=== PATIENT | male | born 1955 | race Caucasian/White ===

== ENCOUNTER 2018-01-12 10:43 | Outpatient (CLI) | payer BC, OTHER | END 2018-01-12 10:44 | disposition home or self-care (01) | LOC: BICULT 10:43 | PROVIDERS: ATTEND Internal Medicine Nephrology | DX: N18.3 Chronic kidney disease, stage 3 (moderate) (principal); N13.30 Unspecified hydronephrosis | CPT/HCPCS: 76770 ==

== ENCOUNTER 2018-01-31 12:15 | Outpatient (CLI) | payer BC, OTHER | END 2018-01-31 12:16 | disposition home or self-care (01) | LOC: SCSCT 12:15 | PROVIDERS: ATTEND Urology | DX: N13.30 Unspecified hydronephrosis (principal); N28.1 Cyst of kidney, acquired | CPT/HCPCS: 74176 ==

== ENCOUNTER 2018-07-11 11:21 | Outpatient (CLI) | payer BC ==
[2018-07-11 12:24] LABS: #Eosinphils 0.1 thou/uL (0.0-0.7); #Lymphocytes 1.1 thou/uL (1.20-3.40); #Monocytes 0.4 thou/uL (0.11-0.59); #Neutrophils 3.7 thou/uL (1.40-6.50); %Basophils 0.5 % (0.0-1.0); %Eosinophils 2.2 % (0.0-10.0); %Lymphocytes 20.9 % (21.0-51.0); %Monocytes 7.3 % (0.0-10.0); %Neutrophils 69.1 % (42.0-75.0); Hemoglobin 12.2 g/dL (14.0-18.0); Mean Corpuscular HGB CONC 32.8 g/dL (32.0-36.0); Mean Corpuscular Hemoglobin 28.6 pg (27.0-31.0); Mean Corpuscular Volume 87.2 fL (78.0-98.0); Platelet Count 219 thou/uL (130-400); RBC Distribution Width 11.8 % (11.5-14.5); Red Blood Cell (RBC) Count 4.28 mill/uL (4.70-6.10); White Blood Cell (WBC) Count 5.4 thou/uL (4.8-10.8)
[2018-07-11 12:42] LABS: ALT (SGPT) 16 U/L (8-55); AST (SGOT) 24 U/L (5-34); Albumin 3.9 g/dL (3.4-4.8); Alkaline Phosphatase 93 U/L (40-150); Anion Gap 12 mmol/L (10-20); BUN (Urea Nitrogen) 16 mg/dL (8.4-25.7); Bilirubin, Total 0.4 mg/dL (0.2-1.2); Calc. Creatinine Clearance 0 mL/min (70-130); Calcium 9.1 mg/dL (7.8-10.44); Carbon Dioxide 26 mmol/L (23-31); Chloride 106 mmol/L (98-107); Estimated GFR-MDRD 66; Globulin 2.7 g/dL (2.4-3.5); Glucose 79 mg/dL (80-115); Potassium 4.7 mmol/L (3.5-5.1); Protein, Total 6.6 g/dL (5.8-8.1); Sodium 139 mmol/L (136-145)
--- NOTE | 2018-07-11 16:19 | EKG ---
Test Reason : Blood Pressure : / mmHG Vent. Rate : 072 BPM Atrial Rate : 072 BPM P-R Int : 184 ms QRS Dur : 068 ms QT Int : 384 ms P-R-T Axes : 036 012 012 degrees QTc Int : 420 ms Normal sinus rhythm Normal ECG When compared with ECG of 03-JAN-2013 16:21, No significant change was found Confirmed by DR. Isabelle MCNEIL ([id number]) on 07/11/2018 4:19:25 PM Referred By: ANGIE Confirmed By:DR. Isabelle MCNEIL
== END 2018-07-11 11:22 | disposition home or self-care (01) ==
LOC: LABBT 11:21
PROVIDERS: ATTEND Surgery
DX: Z01.818 Encounter for other preprocedural examination (principal)
CPT/HCPCS: 80053; 85025; 93005; 93010

== ENCOUNTER 2018-07-14 06:38 | Day surgery (SDC) | payer BC ==
[2018-07-11 11:39] VITALS: BMI 27.4
[2018-07-14] MEDS ORDERED: CEFAZOLIN 2 GM/50 ML BAG ONE (07:32)
[2018-07-14] MEDS ORDERED: Bupivacaine/Epinephrine 0.25% 30 ML VIAL ONE (08:30)
[2018-07-14] MEDS ORDERED: Fentanyl 100 MCG/2 ML VIAL ONE ×2 (08:56→10:18)
[2018-07-14] MEDS ORDERED: PROPOFOL 200 MG/20 ML VIAL ONE (10:39)
[2018-07-14] MEDS ORDERED: Lidocaine 1% PF 5 ML VIAL ONE (10:39)
[2018-07-14] MEDS ORDERED: PHENYLEPHRINE-NS 100 MCG/ML 10 ML SYRINGE ONE (10:39)
[2018-07-14] MEDS ORDERED: HYDROcodone/Acetaminophen 5/325 mg Tablet ONE (11:39)
--- NOTE | 2018-07-14 12:46 | OP ---
DATE OF PROCEDURE: 07/14/2018 PREOPERATIVE DIAGNOSIS: Right inguinal hernia. PROCEDURE PERFORMED: Right inguinal hernia repair with mesh. INDICATIONS: This is a 62-year-old male, who had a painful bulge in the right groin, found to have a hernia. FINDINGS: Right indirect inguinal hernia. DESCRIPTION OF PROCEDURE: After informed consent was obtained, the patient was taken to the operating room and given general endotracheal anesthesia, placed in the supine position. His groin area was prepped and draped in usual fashion. Local anesthesia was infiltrated subcutaneously and deep, and a transverse right inguinal incision was performed. Subcu divided sharply. The fascia of external oblique was incised in direction of its fibers through the external ring. The spermatic cord isolated with a [place] drain. Cremasteric fibers . Hernia sac was found. This was dissected down to the internal ring, and reduced. Reduction maintained with a PHS hernia system. The posterior layer was placed in the preperitoneal space, anterior was laid down and medially. It was sutured to the pubic tubercle with a 2-0 Prolene suture laterally. It was tucked under the external oblique fascia. A notch was cut out for the spermatic cord. Hemostasis assured. The cord placed anatomically. The external oblique fascia was closed with a running 3-0 Vicryl. Serenity was closed with interrupted 3-0 Vicryl and the skin closed with a running subcuticular 4-0 Rapide. Steri-Strips Applied. Sterile bandage applied. The patient tolerated the procedure well, transferred to Recovery in good condition. Sponge and needle count verified correct x2. Job ID: [id number]
== END 2018-07-14 12:10 | disposition home or self-care (01) ==
LOC: SDC 06:38
PROVIDERS: ATTEND Surgery
PROC: 0YU50JZ Supplement Right Inguinal Region with Synthetic Substitute, Open Approach (ICD-10-PCS; principal; 2018-07-14)
DX: K40.90 Unilateral inguinal hernia, without obstruction or gangrene, not specified as recurrent (principal); K21.9 Gastro-esophageal reflux disease without esophagitis; G47.30 Sleep apnea, unspecified; E78.00 Pure hypercholesterolemia, unspecified; M19.90 Unspecified osteoarthritis, unspecified site; I10 Essential (primary) hypertension; Z87.891 Personal history of nicotine dependence; Z79.82 Long term (current) use of aspirin; Z79.899 Other long term (current) drug therapy; Z88.5 Allergy status to narcotic agent; Z98.1 Arthrodesis status; Z98.890 Other specified postprocedural states
CPT/HCPCS: 96374; C1781; J2001; J2704; J3010

== ENCOUNTER 2019-07-10 09:07 | Outpatient (CLI) | payer BC ==
--- NOTE | 2019-07-10 10:12 | RAD ---
LUMBAR SPINE 3 VIEWS: Date: 07/10/2019 HISTORY: Lumbar degenerative disc disease. FINDINGS/IMPRESSION: Comparison made with exam of 08/29/2012. There are postop changes of posterior spinal fusion with bilateral pedicle screws at L4, L5, and S1 l evels again seen in good position and alignment. Minimal anterolisthesis of L3 over L4 is stable. Deg enerative changes are present. No fracture or bony destruction is seen. Metallic hardware is intact. POS: OFF
== END 2019-07-10 09:08 | disposition home or self-care (01) ==
LOC: RAD 09:07
PROVIDERS: ATTEND Nurse Practitioner Family
DX: M51.36 Other intervertebral disc degeneration, lumbar region (principal); M43.16 Spondylolisthesis, lumbar region; M47.816 Spondylosis without myelopathy or radiculopathy, lumbar region; Z98.1 Arthrodesis status
CPT/HCPCS: 72100

== ENCOUNTER 2019-07-19 12:42 | Outpatient (CLI) | payer BC ==
--- NOTE | 2019-07-19 13:26 | RAD ---
TYLER' VIEW SINUSES: 07/19/2019 PROVIDED CLINICAL HISTORY: History of orbital surgery. FINDINGS: There is no evidence for a metallic foreign body in the region of the orbits. IMPRESSION: As above. POS: OFF
--- NOTE | 2019-07-19 14:09 | MRI ---
MRI LUMBAR SPINE NONCONTRAST:: HISTORY: Lumbar degenerative disc disease. COMPARISON: 03/08/2012. FINDINGS: Appropriate T1 marrow signal intensity of the lumbar vertebrae. Lumbar spine vertebral body heights a re maintained. No fracture. Type II Modic changes at the L3-L4 level and L5-S1 level. Bilateral transpedicular screws at L4, L5 and S1 with associated metallic susceptibly artifact. Appropriate signal intensity of the paraspinal muscles. Pelvic and cortical T2 hyperintensities involving the left and right kidney are redemonstrated. Conus medullaris terminates at the mid L1 level. Spondylolisthesis: 4.4 mm of retrolisthesis of L3 upon L4. T12-L1:Adequate disc hydration. No significant central canal stenosis or significant neural foraminal narrowing. L1-L2:Desiccation with mild loss of disc space height. Broad-based disc bulge minimally flattens the thecal sac. There is no significant central canal stenosis. Mild bilateral neural foraminal narrowing. L2-L3:Adequate disc hydration. Minimal left and right paracentral posterior disc abnormality. Minimal encroachment upon the left subarticular zone. Disc material abuts but does not obscure the traversing left L3 nerve root. Mild ligament flavum thickening and facet hypertrophy are present. Mil d central canal stenosis. Mild bilateral neural foraminal narrowing. L3-L4:Desiccation with moderate to severe loss of disc space height. Broad-based disc bulge, ligament flavum thickening and facet hypertrophy result in mild central canal stenosis. Severe right neural foraminal narrowing. Mild to moderate left neural foraminal narrowing. L4-L5:Adequate disc hydration. No significant loss of disc space height. Broad-based disc bulge, liga ment flavum thickening and facet hypertrophy result in mild central canal stenosis. Right neural foramen is patent. Mild left neural foraminal narrowing. L5-S1:Desiccation with severe loss of disc space height. No significant central canal stenosis. Poste rior laminectomy defects. Mild to moderate bilateral neural foraminal narrowing. IMPRESSION: 1. Interval lumbar fusion changes from L4 through S1. 2. Varying degrees of central canal stenosis and foraminal narrowing as described above. Severe right neural foraminal narrowing at L3-L4. Transcribed Date/Time: 07/19/2019 2:22 PM
== END 2019-07-19 12:43 | disposition home or self-care (01) ==
LOC: BICMRI 12:42
PROVIDERS: ATTEND Nurse Practitioner Family
DX: M51.36 Other intervertebral disc degeneration, lumbar region (principal); M48.061 Spinal stenosis, lumbar region without neurogenic claudication; M48.07 Spinal stenosis, lumbosacral region; Z98.1 Arthrodesis status
CPT/HCPCS: 70210; 72148

== ENCOUNTER 2019-11-09 10:26 | Outpatient (CLI) | payer BC ==
--- NOTE | 2019-11-09 14:13 | RAD ---
CERVICAL SPINE: 11/09/19 Four views. Neutral, flexion and extension views obtained. INDICATIONS: Cervical radicular pain. Neck pain. FINDINGS: Prior anterior fusion procedure at C4-5 is noted. Anterior plate and screws and interbody fusion at t his level is seen. Slight anterolisthesis at C3-4 is noted. This appears to exaggerate slightly with flexion and appears to correct slightly with extension. Disc narrowing at C7 and C7-T1 with degenerative changes noted. IMPRESSION: Degenerative and postoperative changes of cervical spine. Anterolisthesis at C3-4 is noted. POS: C
--- NOTE | 2019-11-09 15:09 | MRI ---
MRI CERVICAL SPINE WITHOUT CONTRAST: Date: 11/09/2019 INDICATION: Cervical radiculopathy, neck pain. Radiation to left upper extremity. Correlation made to plain films of cervical spine from 2016. FINDINGS: Prior anterior fusion procedure at C4-5 is noted. Anterior plate and screws at this level produce art ifact. There is interbody fusion. There is anterior wedging at C6 which is chronic. Degenerative disc changes are noted at C3-4, C5-6, and C6-7 with loss of disc space and hypertrophic change. There is anterior subluxation at C3-4 measu red at 2-3 mm. Findings at each level are noted: C2-3: No significant disc bulge. No central canal or foraminal stenosis. C3-4: Anterolisthesis with posterior disc bulge and spondylosis which mildly impinges on the anterio r cord producing slight flattening of the anterior cord. Bilateral foraminal narrowing due to facet a nd uncinate hypertrophy. C4-5: Fusion at C4-5. The anterior subarachnoid space is mildly effaced throughout this level; howev er, there is no cord impingement. No central canal or foraminal stenosis. C5-6: Degenerative disc changes. Posterior spondylosis abuts the anterior cord. Mild right foraminal narrowing due to hypertrophic change. C6-7: Mild spondylosis effaces the anterior subarachnoid space. No significant central canal or fora puneet stenosis. Cervical cord signal appears normally preserved. IMPRESSION: 1. Postoperative fusion changes at C4-5 as described. 2. Anterolisthesis with posterior spondylosis impinge on the cord at C3-4 as noted above. 3. Posterior spondylosis impinges on the cord at C5-6 as described above. POS: [facility]
== END 2019-11-09 10:27 | disposition home or self-care (01) ==
LOC: BICMRI 10:26
PROVIDERS: ATTEND Nurse Practitioner Family
DX: M47.22 Other spondylosis with radiculopathy, cervical region (principal); M43.12 Spondylolisthesis, cervical region; Z98.1 Arthrodesis status
CPT/HCPCS: 72050; 72141

== ENCOUNTER 2021-05-12 12:56 | Outpatient (CLI) | payer MEDICARE, OTHER ==
[~2021-05-12 12:56] MED LIST: Magnevist 469MG/ML 20 ML VIAL ONE
== END 2021-05-12 12:57 | disposition home or self-care (01) ==
LOC: TBSIIMAG 12:56
PROVIDERS: ATTEND Neurological Surgery
DX: M86.9 Osteomyelitis, unspecified (principal); M51.36 Other intervertebral disc degeneration, lumbar region; M51.37 Other intervertebral disc degeneration, lumbosacral region; M48.061 Spinal stenosis, lumbar region without neurogenic claudication; Z98.890 Other specified postprocedural states
CPT/HCPCS: 72158; 82565; A9579

== ENCOUNTER 2022-01-27 13:52 | Outpatient (CLI) | payer MEDICARE, OTHER | END 2022-01-27 13:53 | disposition home or self-care (01) | LOC: TBSIIMAG 13:52 | PROVIDERS: ATTEND Nurse Practitioner Family | DX: M51.16 Intervertebral disc disorders with radiculopathy, lumbar region (principal); M47.26 Other spondylosis with radiculopathy, lumbar region; M48.061 Spinal stenosis, lumbar region without neurogenic claudication | CPT/HCPCS: 72158; A9579 ==

== ENCOUNTER 2022-02-18 09:19 | Outpatient (CLI) | payer MEDICARE, OTHER | END 2022-02-18 09:20 | disposition home or self-care (01) | LOC: BICRAD 09:19 | PROVIDERS: ATTEND Nurse Practitioner Family | DX: M47.812 Spondylosis without myelopathy or radiculopathy, cervical region (principal); M43.12 Spondylolisthesis, cervical region | CPT/HCPCS: 72050 ==

== ENCOUNTER 2022-07-28 10:16 | Outpatient (CLI) | payer MEDICARE, OTHER ==
[2022-07-28 12:15] LABS: #Basophils 0.1 10x3/uL (0.0-0.2); #Eosinphils 0.2 10x3/uL (0.0-0.5); #Monocytes 0.5 10x3/uL (0.0-1.1); #Neutrophils 2.9 10x3/uL (1.5-8.4); %Basophils 1.1 % (0.0-2.0); %Eosinophils 3.6 % (0.0-6.0); %Lymphocytes 24.3 % (18.0-47.0); %Monocytes 9.5 % (0.0-10.0); %Neutrophils 61.3 % (40.0-75.0); Hemoglobin 11.8 g/dL (13.5-17.5); Mean Corpuscular HGB CONC 33.3 g/dL (32.0-36.0); Mean Corpuscular Hemoglobin 31.1 pg (27.0-33.0); Mean Corpuscular Volume 93.2 fl (81.2-95.1); Mean Platelet Volume 8.8 fl (7.4-10.4); Platelet Count 156 10x3/uL (150-450); RBC Distribution Width 12.7 % (11.5-14.5); White Blood Cell (WBC) Count 4.7 10x3/uL (3.5-10.5)
[2022-07-28 12:26] LABS: Anion Gap 10 mmol/L (10-20); BUN (Urea Nitrogen) 16 mg/dL (8.4-25.7); Calc. Creatinine Clearance 0 mL/min (70-130); Carbon Dioxide 29 mmol/L (23-31); Chloride 106 mmol/L (98-107); Estimated GFR 73; Glucose 85 mg/dL (80-115); Potassium 4.4 mmol/L (3.5-5.1); Sodium 141 mmol/L (136-145)
== END 2022-07-28 10:17 | disposition home or self-care (01) ==
LOC: LABBT 10:16
PROVIDERS: ATTEND Orthopaedic Surgery
DX: Z01.812 Encounter for preprocedural laboratory examination (principal); M96.89 Other intraoperative and postprocedural complications and disorders of the musculoskeletal system; T84.098A Other mechanical complication of other internal joint prosthesis, initial encounter
CPT/HCPCS: 80048; 85025

== ENCOUNTER 2022-07-28 10:30 | Inpatient (IN) | payer MEDICARE, OTHER ==
[2022-07-28 12:46] VITALS: BMI 25.0
[2022-07-29] MEDS ORDERED: Sodium Chloride 0.9% 100 ML ONE ×2 (08:04→09:49)
[2022-07-29] MEDS ORDERED: Tranexamic Acid 1,000 MG/10 ML VIAL ONE (08:04)
[2022-07-29] MEDS ORDERED: Vancomycin 1.5 GRAM/300 ML BAG 1.5 GM in Premix Bag 1 BAG IVPB SCH (08:15)
[2022-07-29 08:54] LABS: SARS-CoV-2 NAA Rapid Test Not Detected (NotDetected)
[2022-07-29] MEDS ORDERED: Midazolam HCl 2 mg/2 ml Vial ONE (08:59)
[2022-07-29] MEDS ORDERED: Fentanyl 100 MCG/2 ML VIAL ONE (09:00)
[2022-07-29] MEDS ORDERED: clonazePAM 1 MG TAB PO PRN (09:31)
[2022-07-29] MEDS ORDERED: Docusate 100 MG CAP PO PRN (09:31)
[2022-07-29] MEDS ORDERED: Non-Formulary Item 1 EACH (Tizanidine Hcl [Tizanidine Hcl] 4 MG Capsule) PO PRN (09:31)
[2022-07-29] MEDS ORDERED: CEFAZOLIN 2 GM VIAL ONE (09:49)
[2022-07-29] MEDS ORDERED: Dexamethasone 20 MG/5 ML VIAL ONE (10:18)
[2022-07-29] MEDS ORDERED: Lidocaine 1% PF 5 ML VIAL ONE (10:18)
[2022-07-29] MEDS ORDERED: PROPOFOL 200 MG/20 ML VIAL ONE (10:18)
[2022-07-29] MEDS ORDERED: PHENYLEPHRINE-NS 100 MCG/ML 10 ML SYRINGE ONE (10:18)
[2022-07-29] MEDS ORDERED: Ondansetron PF 4 MG/2 ML Vial ONE (10:18)
[2022-07-29] MEDS ORDERED: Rocuronium Bromide 10 MG/ML (10ML VIAL) ONE (10:18)
[2022-07-29] MEDS ORDERED: ePHEDrine 50 MG/ML VIAL ONE (10:18)
[2022-07-29] MEDS ORDERED: SUGAMMADEX SODIUM 200 MG/2 ML VIAL ONE (11:56)
[2022-07-29] MEDS ORDERED: Promethazine HCl 25 MG/ML VIAL IM PRN ×2 (12:11→12:30)
[2022-07-29] MEDS ORDERED: Ondansetron HCl/PF 4 MG/2 ML Vial IVP PRN (12:11)
[2022-07-29] MEDS ORDERED: fentaNYL PF 100 MCG/2 ML SYRINGE ONE ×3 (12:17→13:45)
[2022-07-29] MEDS ORDERED: Zolpidem Tartrate 5 MG TAB PO PRN (12:30)
[2022-07-29] MEDS ORDERED: Ropivacaine 0.2% 550 ML 550 ML NERVE BLCK SCH (12:30)
[2022-07-29] MEDS ORDERED: Ondansetron PF 4 MG/2 ML Vial IVP PRN (12:30)
[2022-07-29] MEDS: Dextrose 5 %-0.45 % NaCl 1,000 ML IV SCH ×2 (15:17→15:27)
[2022-07-29] MEDS: CEFAZOLIN 2 GM in Sodium Chloride 0.9% 100 ML IVPB SCH ×2 (15:18→21:39)
[2022-07-29] MEDS: HYDROcodone/Acetaminophen 10/325 mg Tablet PO PRN ×2 (15:20→20:34)
[2022-07-29] MEDS: tiZANidine HCl 4 MG TAB PO PRN (20:35)
[2022-07-29] MEDS ORDERED: Amitriptyline HCl 25 MG TAB PO SCH (21:00)
[2022-07-29] MEDS ORDERED: Non-Formulary Item 1 EACH (Ferrous Sulfate [Ferosul] 325 MG Tablet) PO SCH (21:00)
[2022-07-29] MEDS ORDERED: Multivit, Therapeutic 1 TAB PO SCH (21:00)
[2022-07-29] MEDS ORDERED: Non-Formulary Item 1 EACH (Gabapentin [Neurontin] 800 MG Tablet) PO SCH (21:00)
[2022-07-29] MEDS ORDERED: Gabapentin 400 MG CAP PO SCH (21:00)
[2022-07-29] MEDS ORDERED: AMITRIPTYLINE HCL PO SCH (21:00)
[2022-07-29] MEDS ORDERED: Ferrous Sulfate 325 MG TAB PO SCH (21:00)
[2022-07-30] MEDS: HYDROcodone/Acetaminophen 10/325 mg Tablet PO PRN ×3 (01:05→10:17)
[2022-07-30] MEDS: tiZANidine HCl 4 MG TAB PO PRN (08:17)
[2022-07-30] MEDS ORDERED: Fentanyl 100 MCG/2 ML VIAL SLOW IVP PRN (08:24)
[2022-07-30] MEDS ORDERED: Aspirin 81 mg Enteric Coated Tablet PO SCH (09:00)
[2022-07-30] MEDS ORDERED: Ropivacaine 0.5% HCl/PF (150 MG/30 ML VIAL) ONE (09:02)
[2022-07-30 10:02] VITALS: BP 144/77; TEMP 97.3
== END 2022-07-30 11:41 | disposition home or self-care (01) | DRG 483 ==
LOC: SURG A 07-29 07:23 → SJJU 07-29 14:16
PROVIDERS: ADMIT Orthopaedic Surgery; ATTEND Orthopaedic Surgery
PROC: 0RRJ0JZ Replacement of Right Shoulder Joint with Synthetic Substitute, Open Approach (ICD-10-PCS; principal; 2022-07-29)
DX: T84.89XA Other specified complication of internal orthopedic prosthetic devices, implants and grafts, initial encounter (principal); M96.89 Other intraoperative and postprocedural complications and disorders of the musculoskeletal system; Z96.611 Presence of right artificial shoulder joint; I10 Essential (primary) hypertension; I25.10 Atherosclerotic heart disease of native coronary artery without angina pectoris; E11.9 Type 2 diabetes mellitus without complications; E78.5 Hyperlipidemia, unspecified; Z79.82 Long term (current) use of aspirin; Z79.899 Other long term (current) drug therapy; Z01.812 Encounter for preprocedural laboratory examination; T84.098A Other mechanical complication of other internal joint prosthesis, initial encounter
CPT/HCPCS: 80048; 85025; A4306; C1713; C1776; J1100; J2250; J2405; J2704; J2795; J3010; J3490; J7042; U0002

== ENCOUNTER 2025-06-21 14:08 | Inpatient (IN) | payer MEDICARE, OTHER ==
[2025-06-21 16:14] VITALS: BMI 26.8
[2025-06-21] MEDS ORDERED: Acetaminophen 325 MG TAB PO PRN (17:18)
[2025-06-21] MEDS ORDERED: TADALAFIL 20 MG PO PRN (17:19)
[2025-06-21] MEDS ORDERED: Nitroglycerin 0.4 MG TAB (25 Tab Bottle) SL PRN (17:22)
[2025-06-21] MEDS: oxyCODONE/Acetaminophen 5 mg/325 mg Tablet PO SCH ×3 (17:59→22:54)
[2025-06-21 20:37] LABS: Hematocrit 41.7 % (42.0-52.0); Hemoglobin 13.4 g/dL (14.0-18.0); Platelet Count 168 10x3/uL (130-400)
[2025-06-21] MEDS: Multivit, Therapeutic 1 TAB PO SCH (21:24)
[2025-06-21] MEDS: Nitroglycerin 2% Ointment 1 INCH/1 GM Packet TOP SCH (21:25)
[2025-06-21] MEDS: Gabapentin 400 MG CAP PO SCH (21:25)
[2025-06-21] MEDS: Enoxaparin 100 MG (1 mL) SYRINGE SC SCH (22:53)
[2025-06-22 05:40] LABS: Cardiac Risk 3.6 (Less than 4.5); Cholesterol 137.0 mg/dl (< 200 Desired); HDL Cholesterol 38.0 mg/dL (>60 Neg Risk); LDL Cholesterol, Calculated 81.0 mg/dL; Triglycerides 92.0 mg/dL (Less than 150)
[2025-06-22] MEDS: Communication Order-Pharmacy FS ONE (09:17)
[2025-06-22] MEDS: Pantoprazole 40 MG DR.TAB PO SCH (09:19)
[2025-06-22] MEDS: Metoprolol Succinate XL 100 MG ER.TAB PO SCH (09:19)
[2025-06-22] MEDS: Aspirin 81 mg Enteric Coated Tablet PO SCH (09:21)
[2025-06-22] MEDS: Ferrous Sulfate 325 MG TAB PO SCH (09:21)
[2025-06-22] MEDS ORDERED: oxyCODONE/Acetaminophen 5 mg/325 mg Tablet PO PRN (09:26)
[2025-06-22] MEDS: TICAGRELOR 90 MG TABLET PO SCH ×2 (09:33→20:07)
[2025-06-22 09:53] LABS: #Basophils 0.04 10x3/uL (0.0-0.2); #Eosinophils 0.12 10x3/uL (0.0-0.7); #Monocytes 0.30 10x3/uL (0.11-0.59); #Neutrophils 5.05 10x3/uL (1.40-6.50); %Basophils 0.6 % (0.0-1.0); %Eosinophils 1.9 % (0.0-10.0); %Lymphocytes 12.4 % (21.0-51.0); %Monocytes 4.8 % (0.0-10.0); %Neutrophils 80.0 % (42.0-75.0); Hematocrit 39.9 % (42.0-52.0); Hemoglobin 13.2 g/dL (14.0-18.0); Mean Corpuscular Hemoglobin 30.2 pg (27.0-31.0); Mean Corpuscular Volume 91.3 fL (78.0-98.0); Platelet Count 146 10x3/uL (130-400); Red Blood Cell (RBC) Count 4.37 mill/uL (4.70-6.10); White Blood Cell (WBC) Count 6.31 10x3/uL (4.8-10.8)
[2025-06-22 10:07] LABS: Anion Gap 10 mmol/L (10-20); BUN (Urea Nitrogen) 11 mg/dL (8.4-25.7); Calc. Creatinine Clearance 87 mL/min (70-130); Calcium 8.7 mg/dL (7.8-10.44); Carbon Dioxide 26 mmol/L (23-31); Cardiac Risk 3.7 (Less than 4.5); Chloride 107 mmol/L (98-107); Cholesterol 139 mg/dl (< 200 Desired); Glucose 125 mg/dL (80-115); HDL Cholesterol 38 mg/dL (>60 Neg Risk); LDL Cholesterol, Calculated 80 mg/dL; Magnesium 2.0 mg/dL (1.6-2.6); Potassium 4.4 mmol/L (3.5-5.1); Sodium 139 mmol/L (136-145); Triglycerides 105 mg/dL (Less than 150)
[2025-06-22] MEDS: Heparin 10,000 UNITS/ 10 ML VIAL SLOW IVP SCH (11:56)
[2025-06-22] MEDS ORDERED: Iopamidol 370 76% 100 ML VIAL ONE (12:53)
[2025-06-22] MEDS: oxyCODONE/Acetaminophen 5 mg/325 mg Tablet PO SCH (15:35)
[2025-06-22] MEDS: oxyCODONE 5 MG TAB PO SCH (15:35)
[2025-06-22] MEDS ORDERED: Lidocaine 1% (PF) 30 ML VIAL ONE (16:12)
[2025-06-22] MEDS ORDERED: Nitroglycerin 50 MG/250 ML BOT 250 ML ONE (16:12)
[2025-06-22] MEDS ORDERED: Heparin 10,000 UNITS/ 10 ML VIAL ONE (16:13)
[2025-06-22] MEDS ORDERED: TICAGRELOR 90 MG TABLET ONE (17:42)
[2025-06-23 04:38] LABS: Anion Gap 12 mmol/L (10-20); BUN (Urea Nitrogen) 10 mg/dL (8.4-25.7); Calc. Creatinine Clearance 86 mL/min (70-130); Calcium 8.4 mg/dL (7.8-10.44); Carbon Dioxide 22 mmol/L (23-31); Chloride 108 mmol/L (98-107); Glucose 80 mg/dL (80-115); Magnesium 2.0 mg/dL (1.6-2.6); Potassium 4.0 mmol/L (3.5-5.1); Sodium 138 mmol/L (136-145)
[2025-06-23 08:05] LABS: %Lymphocytes 18.5 % (21.0-51.0); %Monocytes 8.0 % (0.0-10.0); %Neutrophils 71.4 % (42.0-75.0); Hematocrit 39.1 % (42.0-52.0); Hemoglobin 12.8 g/dL (14.0-18.0); Mean Corpuscular Hemoglobin 30.0 pg (27.0-31.0); Mean Corpuscular Volume 91.6 fL (78.0-98.0); Platelet Count 172 10x3/uL (130-400); Red Blood Cell (RBC) Count 4.27 mill/uL (4.70-6.10); White Blood Cell (WBC) Count 6.22 10x3/uL (4.8-10.8)
[2025-06-23 08:06] LABS: #Basophils 0.03 10x3/uL (0.0-0.2); #Eosinophils 0.09 10x3/uL (0.0-0.7); #Monocytes 0.50 10x3/uL (0.11-0.59); #Neutrophils 4.44 10x3/uL (1.40-6.50); %Basophils 0.5 % (0.0-1.0); %Eosinophils 1.4 % (0.0-10.0)
[2025-06-23] MEDS: FLU (Fluad Triv) 25-26 (65UP)PF 45 MCG/0.5 ML Syringe IM ONE (08:22)
[2025-06-24 04:49] LABS: Hematocrit 41.4 % (42.0-52.0); Hemoglobin 13.9 g/dL (14.0-18.0); Platelet Count 150 10x3/uL (130-400)
[2025-06-24 04:58] LABS: Anion Gap 14 mmol/L (10-20); BUN (Urea Nitrogen) 14 mg/dL (8.4-25.7); Calc. Creatinine Clearance 89 mL/min (70-130); Calcium 8.4 mg/dL (7.8-10.44); Carbon Dioxide 20 mmol/L (23-31); Chloride 107 mmol/L (98-107); Glucose 77 mg/dL (80-115); Magnesium 2.0 mg/dL (1.6-2.6); Potassium 4.2 mmol/L (3.5-5.1); Sodium 137 mmol/L (136-145)
[2025-06-24] MEDS: FLU (Fluad Triv) 25-26 (65UP)PF 45 MCG/0.5 ML Syringe IM ONE (09:38)
[2025-06-24 12:11] VITALS: TEMP 98.2
[2025-06-24 14:18] VITALS: BP 139/74
== END 2025-06-24 14:42 | disposition home or self-care (01) | DRG 322 ==
LOC: OBS 16:10 → OBSVTOIN 06-22 09:27 → CCU 06-22 18:43 → 2NO 06-23 13:52
PROVIDERS: ADMIT Family Medicine; ATTEND Hospitalist
PROC: 027034Z Dilation of Coronary Artery, One Artery with Drug-eluting Intraluminal Device, Percutaneous Approach (ICD-10-PCS; principal; 2025-06-22)
PROC: 02703ZZ Dilation of Coronary Artery, One Artery, Percutaneous Approach (ICD-10-PCS; 2025-06-22)
PROC: 4A023N7 Measurement of Cardiac Sampling and Pressure, Left Heart, Percutaneous Approach (ICD-10-PCS; 2025-06-22)
PROC: B2151ZZ Fluoroscopy of Left Heart using Low Osmolar Contrast (ICD-10-PCS; 2025-06-22)
PROC: B2111ZZ Fluoroscopy of Multiple Coronary Arteries using Low Osmolar Contrast (ICD-10-PCS; 2025-06-22)
PROC: 3E02340 Introduction of Influenza Vaccine into Muscle, Percutaneous Approach (ICD-10-PCS; 2025-06-22)
DX: I21.4 Non-ST elevation (NSTEMI) myocardial infarction (principal); I25.10 Atherosclerotic heart disease of native coronary artery without angina pectoris; I10 Essential (primary) hypertension; M54.9 Dorsalgia, unspecified; G89.29 Other chronic pain; M19.90 Unspecified osteoarthritis, unspecified site; E87.6 Hypokalemia; Z79.899 Other long term (current) drug therapy; Z79.82 Long term (current) use of aspirin; Z98.1 Arthrodesis status; Z98.890 Other specified postprocedural states
CPT/HCPCS: 36415; 80048; 80061; 83036; 83735; 83880; 84484; 85014; 85018; 85025; 85049; 85347; 85730; 90653; 92928; 93005; 93010; 93306; 93458; 94760; 96372; 99152; 99153; C1725; C1769; C1874; C1887; C1894; C9600; G0378; J1644; J1650; J2003; J2250; J3010; J3246; Q9967